=== PATIENT | female | born 1950 | race Hispanic/Latino ===

== ENCOUNTER 2016-09-17 14:58 | Emergency (ER) | payer OTHER, MEDICARE ==
[2016-09-17 14:58] VITALS: BMI 27.1
[2016-09-17 15:02] VITALS: BP 141/71; PULSE 95; RESP 20; TEMP 98; O2SAT 100
[2016-09-17] MEDS ORDERED: Sodium Chloride 0.9% 1,000 ML IV STA (15:31)
--- NOTE | 2016-09-17 15:34 | ED PDOC ---
HPI: Back Time Seen by Provider: 09/17/16 15:06 Chief Complaint (Nursing): Back Pain Chief Complaint (Provider): Back Pain History Per: Patient History/Exam Limitations: no limitations Onset/Duration Of Symptoms: Days (x2) Current Symptoms Are (Timing): Still Present Additional Complaint(s): Nguyen Blevins is a 66 year old female, with a past medical history of diabetes and kidney stones, who presents to the emergency department complaining of low back pain onset for 2 days associated with a burning sensation when urinating. She denies fever or chills and reports symptoms are similar to previous kidney stones where she required a lithotripsy at [facility]. She states to taking Pyridium to no relief. PMD: None provided Past Medical History Reviewed: Historical Data, Nursing Documentation, Vital Signs Vital Signs: Last Vital Signs Temp 98.0 F 09/17/16 15:00 Pulse 95 H 09/17/16 15:00 Resp 20 09/17/16 15:00 BP 141/71 09/17/16 15:00 Pulse Ox 100 09/17/16 15:00 - Medical History PMH: Arthritis, Diabetes (on Insulin, accucheck this morning 137), Gall Bladder Disease, HTN, Kidney Stones Denies: Asthma, Atrial Fibrillation, CHF, COPD, Hypercholesterolemia, Seizures - Surgical History Surgical History: Cholecystectomy, Coronary Stent Denies: CABG, Pacemaker Other surgeries: lithotripsy - Family History Family History: States: CAD - Home Medications Home Medications: Ambulatory Orders Medication Instructions Recorded Aspirin [Aspirin Chewable] 1 tab PO DAILY 05/04/15 Clopidogrel Bisulfate [Plavix] 1 tab PO DAILY 05/04/15 Digoxin [Lanoxin] 1 tab PO DAILY 05/04/15 Insulin Detemir [Levemir] 18 mg SUBCUT DAILY 05/04/15 Liraglutide [Victoza 2-Sai] 18 mg SUBCUT DAILY 05/04/15 Metoprolol Succinate [Toprol XL] 1 tab PO DAILY 05/04/15 metFORMIN [glucOPHAGE] 2 tab PO BID 05/04/15 Irbesartan [Avapro] 150 mg PO DAILY 06/30/15 Nitrofurantoin Macrocrystals 100 mg PO BID #10 cap 09/17/16 [Macrobid] Phenazopyridine HCl [Pyridium] 100 mg PO BID PRN 5 Days 09/17/16 - Allergies Allergies/Adverse Reactions: Allergies Allergy/AdvReac Type Severity Reaction Status Date / Time ciprofloxacin [From Cipro] Allergy ITCHING Verified 05/03/15 07:52 Review of Systems ROS Statement: Except As Marked, All Systems Reviewed And Found Negative Genitourinary Female: Positive for: Dysuria, Other (Creek coloration in urine) Musculoskeletal: Positive for: Back Pain Physical Exam - Reviewed Nursing Documentation Reviewed: Yes Vital Signs Reviewed: Yes - Physical Exam Appears: Positive for: Well, Non-toxic, In Acute Distress (Moderate Pain ) Head Exam: Positive for: ATRAUMATIC, NORMAL INSPECTION, NORMOCEPHALIC Skin: Positive for: Normal Color, Warm, Dry Eye Exam: Positive for: EOMI, Normal appearance, PERRL ENT: Positive for: Normal ENT Inspection Cardiovascular/Chest: Positive for: Regular Rate, Rhythm Respiratory: Positive for: CNT, Normal Breath Sounds Gastrointestinal/Abdominal: Positive for: Normal Exam, Bowel Sounds, Soft Back: Positive for: R CVA Tenderness. Negative for: Normal Inspection Neurologic/Psych: Positive for: Alert, Oriented - Laboratory Results Result Diagrams: 09/17/16 15:45 09/17/16 15:45 - ECG O2 Sat by Pulse Oximetry: 100 (RA) Pulse Ox Interpretation: Normal Medical Decision Making Medical Decision Making: Initial Impression: Pylonephritis Initial Plan: --Abd and Pelvis w/o PO or IV [CT] --Comp Metabolic Panel --Urine Dipstick --CBC w/ diff --PTT --Patient --Toradol 15 mg IV --NS IV 1000 ml at 1000 mls/hr --Urine Culture --Glucose, Blood, POC --Urinalysis --reevaluation Scribe Attestation: Documented by Mayito Melo, acting as a scribe for Abi Boland MD. Provider Scribe Attestation: All medical record entries made by the Scribe were at my direction and personally dictated by me. I have reviewed the chart and agree that the record accurately reflects my personal performance of the history, physical exam, medical decision making, and the department course for this patient. I have also personally directed, reviewed, and agree with the discharge instructions and disposition. Disposition - Clinical Impression Clinical Impression: UTI (urinary tract infection), Kidney stone - Disposition Referrals: [facility] [Outside] - 09/18/16 Yusra Adhikari MD [Medical Doctor] - 09/18/16 Disposition: Transfer of Care Disposition Time: 17:00 Condition: STABLE Additional Instructions: Return if not better in 3 days. Prescriptions: Nitrofurantoin Macrocrystals [Macrobid] 100 mg PO BID #10 cap Phenazopyridine HCl [Pyridium] 100 mg PO BID PRN 5 Days PRN Reason: Bladder Spasm Instructions: Kidney Stones (ED), Urinary Tract Infection in Women (ED) Forms: [employer] (Ukrainian) Patient Signed Over To: Vincent Sin
[2016-09-17 15:58] LABS: BASO % 0.4 % (0.0-2.0); EOS # 0.1 K/uL (0.0-0.7); EOS % 1.8 % (0.0-4.0); HEMOGLOBIN 11.8 g/dL (12.0-16.0); LYMPH # 1.6 K/uL (1.0-4.3); LYMPH % 21.9 % (20.0-40.0); MEAN CELL VOLUME 83.2 fl (81.0-99.0); MEAN CORPUSCULAR HEMOGLOBIN 27.1 pg (27.0-31.0); MEAN CORPUSCULAR HGB CONC 32.6 g/dL (33.0-37.0); MEAN PLATELET VOLUME 7.4 fl (7.2-11.7); MONO # 0.3 K/uL (0.0-0.8); MONO % 4.8 % (0.0-10.0); NEUT # 5.1 K/uL (1.8-7.0); NEUT % 71.1 % (50.0-75.0); NRBC % 0.1 % (0.0-0.0); RBC 4.34 Mil/uL (3.80-5.20); RED CELL DISTRIBUTION WIDTH 14.1 % (11.5-14.5); WHITE BLOOD COUNT 7.2 K/uL (4.8-10.8)
[2016-09-17 16:05] LABS: SQUAMOUS EPITHIAL 1 /hpf (0-5); URINE BILIRUBIN NEGATIVE (NEGATIVE); URINE BLOOD SMALL (NEGATIVE); URINE CLARITY CLOUDY (Clear); URINE COLOR RED (YELLOW); URINE GLUCOSE (UA) 150 mg/dL (Normal); URINE LEUKOCYTE ESTERASE NEG Leu/uL (Negative); URINE NITRATE POSITIVE (NEGATIVE); URINE PROTEIN 100 mg/dL (NEGATIVE)
[2016-09-17 16:10] LABS: ALB/GLOB RATIO 1.7 (1.0-2.1); ALBUMIN 4.6 g/dL (3.5-5.0); ALT/SGPT 69 U/L (9-52); AST/SGOT 39 U/L (14-36); BLOOD UREA NITROGEN 17 mg/dl (7-17); CALCIUM 9.7 mg/dL (8.4-10.2); GFR AFRICAN-AMERICAN > 60; GFR NON-AFRICAN AMERICAN > 60
[2016-09-17] MEDS ORDERED: cefTRIAXone (Rocephin) 1 gm Inj ONE (16:14)
--- NOTE | 2016-09-17 17:31 | CT ---
PROCEDURE: CT Abdomen and Pelvis without Oral or IV contrast. HISTORY: R flank pain COMPARISON: Limited abdominal ultrasound performed 04/05/16 TECHNIQUE: Contiguous axial images of the abdomen and pelvis. No oral or IV contrast administered. Coronal and Sagittal reformats generated and reviewed. Radiation dose: Total exam DLP = 898.86 mGy-cm. This CT exam was performed using one or more of the following dose reduction techniques: Automated exposure control, adjustment of the mA and/or kV according to patient size, and/or use of iterative reconstruction technique. FINDINGS: There is limited evaluation of the solid organs without the administration of IV contrast. LOWER THORAX: No visible consolidation, pleural effusion, or pneumothorax. Punctate calcified granuloma, right middle lobe. Sub cm cardiophrenic lymph nodes, nonspecific. Small hiatal hernia/distal esophageal wall thickening. LIVER: Unremarkable unenhanced appearance. GALLBLADDER AND BILE DUCTS: Cholecystectomy. PANCREAS: Atrophy. SPLEEN: 9 mm probable splenule. Splenomegaly. ADRENALS: 9 mm left adrenal gland nodule measures approximately 16 HU, indeterminate. The right adrenal gland appears unremarkable. KIDNEYS AND URETERS: No hydronephrosis or obstructing renal calculus. 3 mm nonobstructing right renal calculus. BLADDER: 3 mm calcification dependent within the urinary bladder, presumably due to recently passed stone. Correlate clinically. REPRODUCTIVE: Uterus is present. APPENDIX: The appendix appears within normal limits of caliber. No secondary signs of acute appendicitis. BOWEL: The stomach is nondistended. Lack of oral contrast limits evaluation for bowel pathology. The bowel loops appear within normal limits of caliber without evidence of intestinal obstruction. Moderate constipation. PERITONEUM: No significant free fluid. No definite free air. LYMPH NODES: No bulky lymphadenopathy identified. VASCULATURE: No aortic aneurysm. BONES: Osseous demineralization. Extensive multilevel degenerative changes of the spine including intervertebral disc space narrowing and vacuum disc phenomenon. Degenerative changes of the spine. OTHER FINDINGS: None. IMPRESSION: 3 mm calcification dependent within the urinary bladder, presumably due to recently passed stone. Correlate clinically. 3 mm nonobstructing right renal calculus. 9 mm left adrenal gland nodule measures approximately 16 HU, indeterminate. Splenomegaly. Cholecystectomy. Small hiatal hernia/distal esophageal wall thickening. Additional findings as above.
--- NOTE | 2016-09-17 17:36 | ED PDOC ---
- Laboratory Results Result Diagrams: 09/17/16 15:45 09/17/16 15:45 Interpretation Of Abn Labs: urine wbc - ECG O2 Sat by Pulse Oximetry: 100 (RA) - CT Scan/US ct Other Rad Studies (CT/US): Read By Radiologist Other Rad Interpretation: 3mm stone in bladder - Progress ED Course And Treament: 1757: Stable. AAOx3. Pain free. Tolerated PO. Fu with your urologist Dr. Cleary and pcp. Disposition - Clinical Impression Clinical Impression: UTI (urinary tract infection), Kidney stone - POA Present On Arrival: None - Disposition Referrals: Yusra Adhikari MD [Medical Doctor] - 09/18/16 [facility] [Outside] - 09/18/16 Disposition: Routine/Home Disposition Time: 17:59 Condition: STABLE Additional Instructions: Return if not better in 3 days. Prescriptions: Nitrofurantoin Macrocrystals [Macrobid] 100 mg PO BID #10 cap Phenazopyridine HCl [Pyridium] 100 mg PO BID PRN 5 Days PRN Reason: Bladder Spasm Instructions: Urinary Tract Infection in Women (ED), Kidney Stones (ED) Forms: [employer] (Bengali)
[2016-09-17 18:04] LABS: INR 1.1 (0.9-1.2); PARTIAL THROMBOPLASTIN TIME 30.2 Seconds (25.6-37.1); PROTHROMBIN TIME 11.5 Seconds (9.8-13.1)
== END 2016-09-17 19:19 | disposition home or self-care (01) ==
LOC: H.ER 14:58
DX: N39.0 Urinary tract infection, site not specified (principal); N20.0 Calculus of kidney; E11.9 Type 2 diabetes mellitus without complications; I10 Essential (primary) hypertension; Z79.4 Long term (current) use of insulin; Z79.82 Long term (current) use of aspirin; Z95.5 Presence of coronary angioplasty implant and graft

== ENCOUNTER 2017-09-09 07:04 | Day surgery (SDC) | payer OTHER, MEDICARE ==
[2017-09-09] MEDS ORDERED: Lactated Ringer's 500 ML IV ONE (07:29)
[2017-09-09] MEDS ORDERED: Propofol 10 mg/ml Inj (20 ML) ONE (08:10)
[2017-09-09] MEDS ORDERED: ePHEDrine 50 mg/ml Inj ONE (08:29)
[2017-09-09 09:34] VITALS: BP 133/63; PULSE 91; RESP 22; TEMP 98; O2SAT 100
== END 2017-09-09 09:35 | disposition home or self-care (01) ==
LOC: H.ENDO 07:04
PROVIDERS: ATTEND Internal Medicine Gastroenterology
DX: K52.9 Noninfective gastroenteritis and colitis, unspecified (principal); E11.9 Type 2 diabetes mellitus without complications; I10 Essential (primary) hypertension; I25.10 Atherosclerotic heart disease of native coronary artery without angina pectoris; K63.89 Other specified diseases of intestine; K29.70 Gastritis, unspecified, without bleeding
CPT/HCPCS: 43239; 45380; 82948; 88305; J2001; J2704; J7120

== ENCOUNTER 2017-11-29 12:42 | Emergency (ER) | payer OTHER, MEDICARE ==
[2017-11-29 12:42] VITALS: BMI 27.1
[2017-11-29] MEDS ORDERED: Sodium Chloride 0.9% 1,000 ML IV STA (13:18)
--- NOTE | 2017-11-29 13:29 | ED PDOC ---
HPI: Abdomen Time Seen by Provider: 11/29/17 13:09 Chief Complaint (Nursing): Abdominal Pain Chief Complaint (Provider): Abdominal Pain History Per: Patient History/Exam Limitations: no limitations Onset/Duration Of Symptoms: Days (x2) Current Symptoms Are (Timing): Still Present Additional Complaint(s): 67 y/o female with a PMHx of Arthritis, Diabetes, Gall Bladder Disease, HTN and Kidney Stones presents to the ED for worsening left sided abdominal and back pain, onset two days ago. Patient states pain is associated with three episodes of dysuria yesterday. Patient reports dysuria resolved with pyridium that she used leftover from a previous UTI. Patient additionally reports of diarrhea for the past six months. Patient has had workup done for diarrhea but have all resulted negative. Patient additionally states symptoms does not feel as sharp or crampy as those associated with previous renal stones. Patient reports of nausea for the past two days as well as tolerating small amounts of food and water. Patient states other conditions are otherwise well controlled. Denies fever and recent illnesses. PMD: [facility] Past Medical History Reviewed: Historical Data, Nursing Documentation, Vital Signs Vital Signs: Last Vital Signs Temp 97.9 F 11/29/17 12:46 Pulse 82 11/29/17 12:46 Resp 18 11/29/17 12:46 BP 175/85 H 11/29/17 12:46 Pulse Ox 98 11/29/17 12:46 - Medical History PMH: Arthritis, Diabetes (on Insulin, accucheck this morning 137), Gall Bladder Disease, HTN, Kidney Stones Denies: Asthma, Atrial Fibrillation, CHF, COPD, Hypercholesterolemia, Chronic Kidney Disease, Seizures - Surgical History Surgical History: Cholecystectomy, Coronary Stent (x10 years ago), Endoscopy Denies: CABG, Pacemaker - Family History Family History: States: CAD - Home Medications Home Medications: Ambulatory Orders Medication Instructions Recorded RX: Aspirin [Aspirin Chewable] 1 tab PO DAILY 05/04/15 RX: Clopidogrel Bisulfate [Plavix] 1 tab PO DAILY 05/04/15 RX: Digoxin 1 tab PO DAILY 05/04/15 RX: Metoprolol Succinate XL 1 tab PO DAILY 05/04/15 [Toprol XL] RX: metFORMIN [glucOPHAGE] 2 tab PO BID 05/04/15 Irbesartan [Avapro] 150 mg PO DAILY 06/30/15 RX: Naproxen 500 mg PO BID #28 ect 11/29/17 Sulfamethoxazole/Trimethoprim 1 tab PO BID #28 tab 11/29/17 [Bactrim DS 800 mg-160 mg] Tamsulosin [Flomax] 0.4 mg PO DAILY #30 cap 11/29/17 - Allergies Allergies/Adverse Reactions: Allergies Allergy/AdvReac Type Severity Reaction Status Date / Time ciprofloxacin [From Cipro] Allergy ITCHING Verified 05/03/15 07:52 Review of Systems ROS Statement: Except As Marked, All Systems Reviewed And Found Negative Gastrointestinal: Positive for: Nausea, Abdominal Pain, Diarrhea Genitourinary Female: Positive for: Dysuria Musculoskeletal: Positive for: Back Pain Physical Exam - Reviewed Nursing Documentation Reviewed: Yes Vital Signs Reviewed: Yes - Physical Exam Appears: Positive for: Well, No Acute Distress Head Exam: Positive for: ATRAUMATIC, NORMOCEPHALIC Skin: Positive for: Normal Color, Warm, Dry Eye Exam: Positive for: Normal appearance, EOMI, PERRL Neck: Positive for: Normal, Painless ROM Cardiovascular/Chest: Positive for: Regular Rate, Rhythm. Negative for: Murmur Respiratory: Positive for: Normal Breath Sounds. Negative for: Respiratory Distress Gastrointestinal/Abdominal: Positive for: Normal Exam, Soft, Tenderness (LLQ) Back: Positive for: L CVA Tenderness, R CVA Tenderness - Laboratory Results Result Diagrams: 11/29/17 13:40 11/29/17 13:40 - ECG O2 Sat by Pulse Oximetry: 98 (RA) Pulse Ox Interpretation: Normal Medical Decision Making Medical Decision Making: Time: 1320 A/P: Workup for stones vs other abdominal pathology or UTI -- Will send labs, urine, CT Abd/Pelvis -- Will reassess patient -- VBG -- EKG -- CMP -- Lipase -- Magnesium -- Phosphorus -- CBC with differentials -- Morphine 2 mg IVP -- Sodium Chloride IV 1000 mls/hr -- Accucheck -- Urinalysis Scribe Attestation: Documented by Rony Echols, acting as a scribe Magy Strickland MD. Provider Scribe Attestation: All medical record entries made by the Scribe were at my direction and personal ly dictated by me. I have reviewed the chart and agree that the record accurately reflects my personal performance of the history, physical exam, medical decision making, and the department course for this patient. I have also personally directed, reviewed, and agree with the discharge instructions and disposition. CT shows stones in bladder and right kidney. No obstruction or hydroureter. UA shows UTI. RX for pain control, Flomax, and Abx. Pt to follow up with urologist and PMD. Return parameters discussed. Disposition - Clinical Impression Clinical Impression: Renal stones, UTI (urinary tract infection) - Disposition Referrals: Yusra Adhikari MD [Medical Doctor] - Disposition Time: 16:10 Condition: IMPROVED Additional Instructions: Follow up with the urologist and your primary doctor for follow up with urinary tract infection and renal stones. Return to the emergency department if symptoms worsen or if you develop new symptoms. Prescriptions: RX: Naproxen 500 mg PO BID #28 ect Sulfamethoxazole/Trimethoprim [Bactrim DS 800 mg-160 mg] 1 tab PO BID #28 tab Tamsulosin [Flomax] 0.4 mg PO DAILY #30 cap Instructions: Kidney Stones (DC), Urinary Tract Infection, Adult (DC) Forms: [employer] (Lao) Print Language: IRISH
[2017-11-29 13:45] LABS: VENOUS BLOOD GAS BASE EXCESS 5.3 mmol/L (0.0-2.0); VENOUS BLOOD GAS PCO2 54 mmHg (40-60); VENOUS BLOOD GAS PO2 24 mm/Hg (30-55); VENOUS BLOOD PH 7.38 (7.32-7.43)
[2017-11-29 13:52] LABS: BASO % 0.5 % (0.0-2.0); EOS # 0.1 K/uL (0.0-0.7); EOS % 1.3 % (0.0-4.0); HEMOGLOBIN 12.8 g/dL (12.0-16.0); LYMPH # 1.2 K/uL (1.0-4.3); LYMPH % 18.4 % (20.0-40.0); MEAN CELL VOLUME 84.3 fl (81.0-99.0); MEAN CORPUSCULAR HEMOGLOBIN 28.3 pg (27.0-31.0); MEAN CORPUSCULAR HGB CONC 33.6 g/dL (33.0-37.0); MEAN PLATELET VOLUME 6.9 fl (7.2-11.7); MONO # 0.3 K/uL (0.0-0.8); MONO % 4.6 % (0.0-10.0); NEUT % 75.2 % (50.0-75.0); NRBC % 0.1 % (0.0-0.0); RBC 4.52 Mil/uL (3.80-5.20); RED CELL DISTRIBUTION WIDTH 13.5 % (11.5-14.5); WHITE BLOOD COUNT 6.6 K/uL (4.8-10.8)
[2017-11-29 14:05] LABS: ALB/GLOB RATIO 1.3 (1.0-2.1); ALBUMIN 4.5 g/dL (3.5-5.0); ALT/SGPT 46 U/L (9-52); AST/SGOT 28 U/L (14-36); BLOOD UREA NITROGEN 11 mg/dl (7-17); CALCIUM 10.4 mg/dL (8.4-10.2); GFR NON-AFRICAN AMERICAN > 60; LIPASE 34 U/L (23-300)
--- NOTE | 2017-11-29 16:33 | CT ---
Date of service: 11/29/2017 PROCEDURE: CT Abdomen and Pelvis without intravenous contrast HISTORY: left abd pain COMPARISON: Comparison is made with the previous study dated 09/17/2016 TECHNIQUE: Axial and reformatted coronal and sagittal CT images of the abdomen and pelvis were obtained without IV or oral contrast administration. Contrast dose: 0 Radiation dose: Total exam DLP = 596.7 mGy-cm. This CT exam was performed using one or more of the following dose reduction techniques: Automated exposure control, adjustment of the mA and/or kV according to patient size, and/or use of iterative reconstruction technique. FINDINGS: LOWER THORAX: Unremarkable. LIVER: Hepatomegaly is again noted. GALLBLADDER AND BILE DUCTS: Status post cholecystectomy. PANCREAS: Unremarkable. No gross lesion or ductal dilatation. SPLEEN: Splenomegaly is again noted. ADRENALS: Again noted is left adrenal nodule measures 1.2 centimeter. KIDNEYS AND URETERS: Again noted is 3 millimeter calcification at the midpole of the right kidney may represent nonobstructing calcaneus. No evidence of hydronephrosis. VASCULATURE: Unremarkable. No aortic aneurysm. BOWEL: Unremarkable. No obstruction. No gross mural thickening. APPENDIX: Unremarkable. Normal appendix. PERITONEUM: Unremarkable. No free fluid. No free air. LYMPH NODES: Unremarkable. No enlarged lymph nodes. BLADDER: Small droplet of air in the bladder noted. REPRODUCTIVE: Unremarkable. BONES: No acute fracture. OTHER FINDINGS: None. IMPRESSION: 3 millimeter calcification at the midpole of the left kidney again noted. No evidence of hydronephrosis or obstructing calculus. Hepato splenomegaly. Stable 1.2 centimeter nodule at the left adrenal gland.
[2017-11-29 16:36] LABS: URINE BACTERIA MANY (<OCC); URINE BILIRUBIN NEGATIVE (NEGATIVE); URINE BLOOD NEGATIVE (NEGATIVE); URINE CLARITY SLIGHTY-CLOUDY (Clear); URINE COLOR AMBER (YELLOW); URINE GLUCOSE (UA) NEG (Normal); URINE LEUKOCYTE ESTERASE SMALL Leu/uL (Negative); URINE PROTEIN NEGATIVE (NEGATIVE); URINE UROBILINOGEN 0.2-1.0 mg/dL (0.2-1.0)
[2017-11-29 17:12] VITALS: BP 168/91; PULSE 92; RESP 16; TEMP 97.6
--- NOTE | 2017-11-30 07:14 | CARD ---
APPROVED REPORT Date of service: 11/29/2017 EKG Measurement Heart [id number] <Conclusion> Normal sinus rhythm Left axis deviation Abnormal ECG
[2017-11-30 14:59] VITALS: O2SAT 98
== END 2017-11-29 17:20 | disposition home or self-care (01) ==
LOC: H.ER 12:42
DX: R19.7 Diarrhea, unspecified (principal); N20.0 Calculus of kidney; N39.0 Urinary tract infection, site not specified; E11.9 Type 2 diabetes mellitus without complications; I10 Essential (primary) hypertension; Z82.49 Family history of ischemic heart disease and other diseases of the circulatory system; Z87.442 Personal history of urinary calculi; Z95.5 Presence of coronary angioplasty implant and graft; Z79.82 Long term (current) use of aspirin; Z79.4 Long term (current) use of insulin
CPT/HCPCS: 74176; 80053; 81003; 82803; 82948; 83690; 83735; 84100; 85025; 93005; 96374; 96375; 99284; J1885; J2270; J2405; J2765; J7030

== ENCOUNTER 2017-12-01 06:59 | Observation (INO) | payer OTHER, MEDICARE ==
[2017-12-01 07:00] VITALS: BMI 27.1
[2017-12-01] MEDS ORDERED: Sodium Chloride 0.9% 1,000 ML IV STA (07:34)
[2017-12-01 08:29] LABS: BASO % 0.3 % (0.0-2.0); EOS # 0.1 K/uL (0.0-0.7); EOS % 0.7 % (0.0-4.0); LYMPH % 15.3 % (20.0-40.0); MEAN CORPUSCULAR HEMOGLOBIN 28.3 pg (27.0-31.0); MEAN CORPUSCULAR HGB CONC 33.8 g/dL (33.0-37.0); MEAN PLATELET VOLUME 6.9 fl (7.2-11.7); MONO # 0.2 K/uL (0.0-0.8); MONO % 3.4 % (0.0-10.0); NEUT # 5.4 K/uL (1.8-7.0); NEUT % 80.3 % (50.0-75.0); RBC 4.23 Mil/uL (3.80-5.20); RED CELL DISTRIBUTION WIDTH 13.5 % (11.5-14.5); WHITE BLOOD COUNT 6.8 K/uL (4.8-10.8)
--- NOTE | 2017-12-01 08:30 | ED PDOC ---
HPI: Back Time Seen by Provider: 12/01/17 07:20 Chief Complaint (Nursing): Back Pain Chief Complaint (Provider): Back Pain History Per: Patient History/Exam Limitations: no limitations Onset/Duration Of Symptoms: Days (x 4 days ago ), Persistent, Worse Since (03:00 today) Current Symptoms Are (Timing): Still Present Additional Complaint(s): Nguyen Blevins is 67 year old female with a past medical history of HTN, kidney stones and type 2 diabetes, who presents to the emergency department complaining of persistent and recurrent left sided flank pain, associated with nausea, onset x4 days ago. Patient states she was seen in the ED x3 days ago and was diagnosed with kidney stones. She reports that her pain had gotten worse as of 03:00 today, prompting her to come to the ED accompanied by her . Patient denies being able to take her medication because of her nausea. PMD: not at [facility] uro: [facility]: [facility] Past Medical History Reviewed: Historical Data, Nursing Documentation, Vital Signs Vital Signs: Last Vital Signs Temp 98.1 F 12/01/17 07:23 Pulse 81 12/01/17 07:23 Resp 18 12/01/17 07:23 BP 181/73 H 12/01/17 07:23 Pulse Ox 96 12/01/17 07:23 - Medical History PMH: Arthritis, Diabetes (on Insulin, accucheck this morning 137), Gall Bladder Disease, HTN, Kidney Stones Denies: Asthma, Atrial Fibrillation, CHF, COPD, Hypercholesterolemia, Chronic Kidney Disease, Seizures - Surgical History Surgical History: Cholecystectomy, Coronary Stent (x10 years ago), Endoscopy Denies: CABG, Pacemaker - Family History Family History: States: CAD - Home Medications Home Medications: Ambulatory Orders Medication Instructions Recorded Aspirin [Aspirin Chewable] 1 tab PO DAILY 05/04/15 Clopidogrel Bisulfate [Plavix] 1 tab PO DAILY 05/04/15 Digoxin 1 tab PO DAILY 05/04/15 Metoprolol Succinate XL [Toprol XL] 1 tab PO DAILY 05/04/15 metFORMIN [glucOPHAGE] 2 tab PO BID 05/04/15 Irbesartan [Avapro] 150 mg PO DAILY 06/30/15 Naproxen 500 mg PO BID #28 ect 11/29/17 Sulfamethoxazole/Trimethoprim 1 tab PO BID #28 tab 11/29/17 [Bactrim DS 800 mg-160 mg] Tamsulosin [Flomax] 0.4 mg PO DAILY #30 cap 11/29/17 - Allergies Allergies/Adverse Reactions: Allergies Allergy/AdvReac Type Severity Reaction Status Date / Time ciprofloxacin [From Cipro] Allergy ITCHING Verified 12/01/17 07:23 Review of Systems ROS Statement: Except As Marked, All Systems Reviewed And Found Negative Cardiovascular: Positive for: Chest Pain Gastrointestinal: Positive for: Nausea, Abdominal Pain (left sided flank pain) Physical Exam - Reviewed Nursing Documentation Reviewed: Yes Vital Signs Reviewed: Yes - Physical Exam Appears: Positive for: In Acute Distress Head Exam: Positive for: ATRAUMATIC, NORMOCEPHALIC Skin: Positive for: Normal Color, Warm, Dry Eye Exam: Positive for: Normal appearance, EOMI, PERRL ENT: Positive for: Normal ENT Inspection Neck: Positive for: Normal, Painless ROM, Supple Cardiovascular/Chest: Positive for: Regular Rate, Rhythm. Negative for: Murmur Respiratory: Positive for: Normal Breath Sounds. Negative for: Respiratory Distress Gastrointestinal/Abdominal: Positive for: Tenderness (left flank side) Back: Positive for: Normal Inspection. Negative for: L CVA Tenderness, R CVA Tenderness, Vertebral Tenderness Extremity: Positive for: Normal ROM. Negative for: Pedal Edema, Deformity Neurologic/Psych: Positive for: Alert, Oriented (x3) - Laboratory Results Result Diagrams: 12/01/17 08:10 12/01/17 08:10 - ECG O2 Sat by Pulse Oximetry: 96 (RA) Pulse Ox Interpretation: Normal Medical Decision Making Medical Decision Making: Time: 08:10 Initial Impression: Renal calculus Initial Plan: --CMP --Lipase --CBC with differential --Urine Culture --Urinalysis --Renal [US] Medications: --Toradol 15 mg IVP --Sodium Chloride 1,000 ml --Zofran 4 mg IV --------- US and CT report reviewed, no obstructing stone UA today neg nitrate neg WBC Patient in ED 9+ hrs, remains nausea and failed PO challenge x2, dizzy/presyncopal on standing EKG NSR 78 w nonspecific changes PMD in [facility], has seen dr Foley and dr Adhikari in past, had lower and upper endoscopies within last [address] Foley, Dr Adhikari sees for UTIs d/w Dr Moody for Obs med surg given inability to tolerate PO, persistent pain and recurrent ED visits for same with failure outpatient therapy Scribe Attestation: Documented by Frantz Avalos, acting as a scribe for Robert Shukla III, DO. Provider Scribe Attestation: All medical record entries made by the Scribe were at my direction and personally dictated by me. I have reviewed the chart and agree that the record accurately reflects my personal performance of the history, physical exam, medical decision making, and the department course for this patient. I have also personally directed, reviewed, and agree with the discharge instructions and disposition. Disposition - Clinical Impression Clinical Impression: Flank pain, Intractable vomiting, Kidney stone - Patient ED Disposition Is Patient to be Admitted: Yes Counseled Patient/Family Regarding: Studies Performed, Diagnosis, Need For Followup - Disposition Disposition Time: 16:01 Condition: STABLE Forms: [employer] (Divehi) - Pt Status Changed To: Hospital Disposition Of: Observation - POA Present On Arrival: None
[2017-12-01 08:38] LABS: ALB/GLOB RATIO 1.3 (1.0-2.1); ALBUMIN 4.1 g/dL (3.5-5.0); ALT/SGPT 32 U/L (9-52); AST/SGOT 32 U/L (14-36); BLOOD UREA NITROGEN 16 mg/dl (7-17); CALCIUM 9.4 mg/dL (8.4-10.2); GFR NON-AFRICAN AMERICAN > 60; LIPASE 59 U/L (23-300)
[2017-12-01 11:10] LABS: URINE BACTERIA RARE (<OCC); URINE BILIRUBIN NEGATIVE (NEGATIVE); URINE BLOOD NEGATIVE (NEGATIVE); URINE CLARITY CLEAR (Clear); URINE COLOR YELLOW (YELLOW); URINE GLUCOSE (UA) >=500 mg/dL (Normal); URINE LEUKOCYTE ESTERASE NEG Leu/uL (Negative); URINE PROTEIN NEGATIVE (NEGATIVE); URINE UROBILINOGEN 0.2-1.0 mg/dL (0.2-1.0)
--- NOTE | 2017-12-01 12:10 | CT ---
Date of service: 12/01/2017 PROCEDURE: CT Abdomen and Pelvis without intravenous contrast HISTORY: persistent L flank pain COMPARISON: Abdomen and pelvis CT without contrast 11/29/2017. TECHNIQUE: Helical CT of the abdomen and pelvis was performed without oral or intravenous contrast as per referring physician request. Coronal and sagittal reformats were generated Contrast dose: None Radiation dose: Total exam DLP = 556.87 mGy-cm. This CT exam was performed using one or more of the following dose reduction techniques: Automated exposure control, adjustment of the mA and/or kV according to patient size, and/or use of iterative reconstruction technique. FINDINGS: LOWER THORAX: Small granuloma right middle lobe base reiterated. LIVER: Borderline hepatomegaly. No gross lesion or ductal dilatation. GALLBLADDER AND BILE DUCTS: Prior cholecystectomy reiterated. PANCREAS: Unremarkable. No gross lesion or ductal dilatation. SPLEEN: Splenomegaly reiterated. ADRENALS: Stable left adrenal adenoma 1.2 cm reiterated. Right adrenal gland remains normal appearing. KIDNEYS AND URETERS: Punctate nonobstructing intrarenal calculus is again seen the midpole right kidney no additional radiodense urolithiasis bilaterally. VASCULATURE: Trace calcified atherosclerotic plaque in the abdominal aorta. No aortic aneurysm. BOWEL: No bowel obstruction. Prominent right fecal loading now identified with [id number] fecal loading throughout the remainder of the colon. Pericolic or perienteric reactive changes appreciated once again. APPENDIX: Unremarkable. Normal appendix. PERITONEUM: Unremarkable. No free fluid. No free air. LYMPH NODES: Unremarkable. No enlarged lymph nodes. BLADDER: Unremarkable. REPRODUCTIVE: Unremarkable. BONES: Stable grade 1 spondylolisthesis L2-3 with L2 anterior L3 once again. Advanced degenerative disease seen L3-4, L4-5 and L5-S1 where there are vacuum disc changes combined with gross disc height loss and endplate arthrosis. OTHER FINDINGS: Reactive changes at the anterior abdominal wall identified bilaterally potentially status post multiple injections but ultimately of uncertain origin. IMPRESSION: 1. Stable borderline hepatomegaly. Stable splenomegaly. 2. 3 mm calculus stable at the midpole right kidney. No obstructive uropathy bilaterally once again. 3. Stable 1.2 cm left adrenal nodule.
--- NOTE | 2017-12-01 12:17 | US ---
Date of service: 12/01/2017 PROCEDURE: Ultrasound of the Kidneys HISTORY: L flank pain COMPARISON: None available. TECHNIQUE: Sonogram of the kidneys. FINDINGS: RIGHT KIDNEY: Measures: 5.7 x 10.6 cm. Normal in size, contour and echogenicity. Solitary echogenic focus mid pole region 3 x 4 mm consistent with nonobstructing calculus. LEFT KIDNEY: Measures: 5.5 x 12.2 cm. Normal in size, contour and echogenicity. No stone, solid mass lesion or hydronephrosis visualized. OTHER FINDINGS: None. IMPRESSION: Nonobstructing right renal calculus. Otherwise unremarkable study
[2017-12-01] MEDS ORDERED: Dextrose 5%/0.9% NS 1,000 ML IV SCH (18:45)
[2017-12-01] MEDS ORDERED: Insulin Detemir 100 Units/ml Inj SC SCH (22:00)
[2017-12-01] MEDS: Insulin Regular 100 units/ml SC SCH (22:11)
[2017-12-02] MEDS: Omega-3-Acid Ethyl Esters 1 GM Cap PO SCH ×2 (00:13→09:33)
[2017-12-02 00:20] VITALS: RESP 20
[2017-12-02 06:04] LABS: HEMOGLOBIN 11.5 g/dL (12.0-16.0); MEAN CELL VOLUME 83.2 fl (81.0-99.0); MEAN CORPUSCULAR HEMOGLOBIN 28.6 pg (27.0-31.0); MEAN CORPUSCULAR HGB CONC 34.3 g/dL (33.0-37.0); RBC 4.03 Mil/uL (3.80-5.20); RED CELL DISTRIBUTION WIDTH 13.4 % (11.5-14.5); WHITE BLOOD COUNT 7.8 K/uL (4.8-10.8)
[2017-12-02 06:12] LABS: ALB/GLOB RATIO 1.2 (1.0-2.1); ALBUMIN 3.5 g/dL (3.5-5.0); ALT/SGPT 29 U/L (9-52); AST/SGOT 21 U/L (14-36); BLOOD UREA NITROGEN 12 mg/dl (7-17); CALCIUM 8.8 mg/dL (8.4-10.2); GFR NON-AFRICAN AMERICAN > 60; HDL CHOLESTEROL 27 MG/DL (30-70)
[2017-12-02 06:20] LABS: LDL CHOLESTEROL 71 mg/dL (0-129)
[2017-12-02 06:24] LABS: T4 6.88 ug/dl (5.5-11.0)
[2017-12-02 06:38] LABS: T3 0.644 nmol/L (1.49-2.60)
[2017-12-02] MEDS ORDERED: Naproxen 500 MG TAB PO SCH (08:00)
[2017-12-02] MEDS: Insulin Regular 100 units/ml SC SCH (08:00)
--- NOTE | 2017-12-02 08:23 | CP.PCM.HP ---
Addendum entered and electronically signed by Judy Valles MD 12/02/17 14:25: Pt stable, tolerating diet and ambulating without distress. No left flank pain noted today. Abd CT the stone on R kidney is non obstructing, very small and will most likely pass, there is no intervention at this time. Patient not having any pain on R flank. Patient seen and cleared for d/c by GI, Dr. Ybarra with outpatient f/u. patient cleared for d/c by Dr elizabeth and f/u as Outpt. Patient seen and cleared for d/c by Dr. Moody. family at bed bedside aware and agree with plan. Original Note: <Judy Valles - Last Filed: 12/02/17 14:19> History of Present Illness - History of Present Illness History of Present Illness: This is a 67 y/o female with a PMHx of Arthritis, Diabetes, Cholelithiasis, HTN and Kidney Stones presents to the ED for worsening left sided abdominal and back pain, onset two days ago. Patient states pain is associated with nausea and vomiting. Patient additionally reports constipation for two days when her normal is diarrhea. Patient states symptoms does not feel as sharp or crampy as those associated with previous renal stones. She had some dysuria that resolved with pyridium. She was able to eat breakfast this morning with no N/V. Renal US and CT shows 3mm renal calculi on left side. ROS: A 12pt ROS was negative except as above Pmhx: Arthritis, Diabetes, Cholelithiasis, HTN and Kidney Stones Pshx: denies FHX: non contributory SHx: Denies etoh, drugs, tobacco Meds: see bellow NKDA Present on Admission - Present on Admission Any Indicators Present on Admission: No Past Patient History - Past Medical History & Family History Past Medical History?: Yes - Past Social History Smoking Status: Never Smoked - CARDIAC Hx Hypertension: Yes - PULMONARY Hx Respiratory Disorders: No - NEUROLOGICAL Hx Neurological Disorder: No - HEENT Hx HEENT Problems: No - RENAL Hx Kidney Stones: Yes - ENDOCRINE/METABOLIC Hx Endocrine Disorders: Yes Hx Diabetes Mellitus Type 2: Yes - HEMATOLOGICAL/ONCOLOGICAL Hx Blood Disorders: No - INTEGUMENTARY Hx Dermatological Problems: No - MUSCULOSKELETAL/RHEUMATOLOGICAL Hx Arthritis: Yes Hx Falls: No - GASTROINTESTINAL Hx Gall Bladder Disease: Yes - GENITOURINARY/GYNECOLOGICAL Hx Genitourinary Disorders: No - PSYCHIATRIC Hx Psychophysiologic Disorder: No Hx Substance Use: No - SURGICAL HISTORY Hx Cholecystectomy: Yes Hx Coronary Stent: Yes (x10 years ago) - ANESTHESIA Hx Anesthesia: Yes Hx Anesthesia Reactions: No Hx Malignant Hyperthermia: No Meds Allergies/Adverse Reactions: Allergies Allergy/AdvReac Type Severity Reaction Status Date / Time ciprofloxacin [From Cipro] Allergy ITCHING Verified 12/02/17 19:42 Physical Exam - Constitutional Appears: No Acute Distress - Head Exam Head Exam: NORMAL INSPECTION - Eye Exam Eye Exam: EOMI, PERRL - Respiratory Exam Respiratory Exam: Clear to Auscultation Bilateral. absent: Rhonchi, Wheezes - Cardiovascular Exam Cardiovascular Exam: REGULAR RHYTHM, +S1, +S2 - GI/Abdominal Exam GI & Abdominal Exam: Soft. absent: Distended, Tenderness - Back Exam Back exam: CVA tenderness (L) - Neurological Exam Neurological exam: Alert, CN II-XII Intact, Oriented x3 - Skin Skin Exam: Dry, Warm Results - Vital Signs Recent Vital Signs: Last Vital Signs Temp 98.2 F 12/02/17 00:20 Pulse 89 12/02/17 00:20 Resp 20 12/02/17 00:20 BP 138/72 12/02/17 00:20 Pulse Ox 96 12/02/17 00:20 - Labs Result Diagrams: 12/02/17 05:45 12/02/17 05:45 Labs: Laboratory Results - last 24 hr 12/01/17 12/01/17 12/01/17 08:10 08:10 10:00 WBC 6.8 RBC 4.23 Hgb 12.0 Hct 35.5 MCV 84.0 MCH 28.3 MCHC 33.8 RDW 13.5 Plt Count 158 MPV 6.9 L Neut % (Auto) 80.3 H Lymph % (Auto) 15.3 L Sharkey % (Auto) 3.4 Eos % (Auto) 0.7 Baso % (Auto) 0.3 Neut # (Auto) 5.4 Lymph # (Auto) 1.0 Sharkey # (Auto) 0.2 Eos # (Auto) 0.1 Baso # (Auto) 0.0 Sodium 140 Potassium 4.0 Chloride 102 Carbon Dioxide 27 Anion Gap 15 BUN 16 Creatinine 0.7 Est GFR ( Amer) > 60 Est GFR (Non-Af Amer) > 60 POC Glucose (mg/dL) Random Glucose 226 H Calcium 9.4 Total Bilirubin 0.5 AST 32 ALT 32 Alkaline Phosphatase 61 Troponin I Total Protein 7.3 Albumin 4.1 Globulin 3.2 Albumin/Globulin Ratio 1.3 Triglycerides Cholesterol LDL Cholesterol Direct HDL Cholesterol Lipase 59 Vitamin B12 Thyroxine (T4) Total T3 TSH 3rd Generation Urine Color Yellow Urine Clarity Clear Urine pH 6.0 Ur Specific [place] 1.014 Urine Protein Negative Urine Glucose (UA) >=500 Urine Ketones Negative Urine Blood Negative Urine Nitrate Negative Urine Bilirubin Negative Urine Urobilinogen 0.2-1.0 Ur Leukocyte Esterase Neg Urine RBC (Auto) 2 Urine Microscopic WBC 5 Urine Bacteria Rare 12/01/17 12/01/17 12/02/17 14:30 22:05 05:19 WBC RBC Hgb Hct MCV MCH MCHC RDW Plt Count MPV Neut % (Auto) Lymph % (Auto) Sharkey % (Auto) Eos % (Auto) Baso % (Auto) Neut # (Auto) Lymph # (Auto) Sharkey # (Auto) Eos # (Auto) Baso # (Auto) Sodium Potassium Chloride Carbon Dioxide Anion Gap BUN Creatinine Est GFR ( Amer) Est GFR (Non-Af Amer) POC Glucose (mg/dL) 218 H 156 H Random Glucose Calcium Total Bilirubin AST ALT Alkaline Phosphatase Troponin I < 0.0120 Total Protein Albumin Globulin Albumin/Globulin Ratio Triglycerides Cholesterol LDL Cholesterol Direct HDL Cholesterol Lipase Vitamin B12 Thyroxine (T4) Total T3 TSH 3rd Generation Urine Color Urine Clarity Urine pH Ur Specific [place] Urine Protein Urine Glucose (UA) Urine Ketones Urine Blood Urine Nitrate Urine Bilirubin Urine Urobilinogen Ur Leukocyte Esterase Urine RBC (Auto) Urine Microscopic WBC Urine Bacteria 12/02/17 12/02/17 05:45 05:45 WBC 7.8 RBC 4.03 Hgb 11.5 L Hct 33.5 L MCV 83.2 MCH 28.6 MCHC 34.3 RDW 13.4 Plt Count 175 MPV Neut % (Auto) Lymph % (Auto) Sharkey % (Auto) Eos % (Auto) Baso % (Auto) Neut # (Auto) Lymph # (Auto) Sharkey # (Auto) Eos # (Auto) Baso # (Auto) Sodium 141 Potassium 3.4 L Chloride 107 Carbon Dioxide 28 Anion Gap 9 L BUN 12 Creatinine 0.6 L Est GFR ( Amer) > 60 Est GFR (Non-Af Amer) > 60 POC Glucose (mg/dL) Random Glucose 167 H Calcium 8.8 Total Bilirubin 0.6 AST 21 ALT 29 Alkaline Phosphatase 46 Troponin I Total Protein 6.3 Albumin 3.5 Globulin 2.8 Albumin/Globulin Ratio 1.2 Triglycerides 167 H Cholesterol 128 LDL Cholesterol Direct 71 HDL Cholesterol 27 L Lipase Vitamin B12 357 Thyroxine (T4) 6.88 Total T3 0.644 L TSH 3rd Generation 0.59 Urine Color Urine Clarity Urine pH Ur Specific [place] Urine Protein Urine Glucose (UA) Urine Ketones Urine Blood Urine Nitrate Urine Bilirubin Urine Urobilinogen Ur Leukocyte Esterase Urine RBC (Auto) Urine Microscopic WBC Urine Bacteria Assessment & Plan - Assessment and Plan (Free Text) Assessment: 67 y/o female with a PMHx of Arthritis, Diabetes, Cholelithiasis, HTN and Kidney Stones admitted due to vomiting and abdominal pain. Plan: - urology consulted, f/u recommeds - GI, consulted, f/u recommendations - continue PO Bactrim - IV fluids - pain management - f/u labs in am. Case discussed with Macy Moody. <Billy Moody - Last Filed: 12/03/17 03:17> Results - Vital Signs Recent Vital Signs: Last Vital Signs Temp 98.5 F 12/02/17 08:26 Pulse 75 12/02/17 09:36 Resp 20 12/02/17 08:26 BP 161/79 H 12/02/17 09:36 Pulse Ox 96 12/02/17 14:57 - Labs Result Diagrams: 12/02/17 05:45 12/02/17 05:45 Labs: Laboratory Results - last 24 hr 12/02/17 12/02/17 12/02/17 05:19 05:45 05:45 WBC 7.8 RBC 4.03 Hgb 11.5 L Hct 33.5 L MCV 83.2 MCH 28.6 MCHC 34.3 RDW 13.4 Plt Count 175 Sodium 141 Potassium 3.4 L Chloride 107 Carbon Dioxide 28 Anion Gap 9 L BUN 12 Creatinine 0.6 L Est GFR ( Amer) > 60 Est GFR (Non-Af Amer) > 60 POC Glucose (mg/dL) 156 H Random Glucose 167 H Calcium 8.8 Total Bilirubin 0.6 AST 21 ALT 29 Alkaline Phosphatase 46 Total Protein 6.3 Albumin 3.5 Globulin 2.8 Albumin/Globulin Ratio 1.2 Triglycerides 167 H Cholesterol 128 LDL Cholesterol Direct 71 HDL Cholesterol 27 L Vitamin B12 357 Thyroxine (T4) 6.88 Total T3 0.644 L TSH 3rd Generation 0.59 12/02/17 10:43 WBC RBC Hgb Hct MCV MCH MCHC RDW Plt Count Sodium Potassium Chloride Carbon Dioxide Anion Gap BUN Creatinine Est GFR ( Amer) Est GFR (Non-Af Amer) POC Glucose (mg/dL) 201 H Random Glucose Calcium Total Bilirubin AST ALT Alkaline Phosphatase Total Protein Albumin Globulin Albumin/Globulin Ratio Triglycerides Cholesterol LDL Cholesterol Direct HDL Cholesterol Vitamin B12 Thyroxine (T4) Total T3 TSH 3rd Generation Assessment & Plan - Assessment and Plan (Free Text) Assessment: Patient was personally seen and examined by me in rounds with residents. Available labs and diagnostic data reviewed. Case, Patient's condition and management plan discussed with residents in rounds. Agree with resident's progress note. Plan: As ordered.
[2017-12-02 08:27] VITALS: BP 161/79; PULSE 75; TEMP 98.5
[2017-12-02] MEDS ORDERED: Digoxin 125 mcg (0.125 mg) Tab PO SCH (09:00)
[2017-12-02] MEDS ORDERED: Tmp-Smz 800 mg-160 mg DS Tab PO SCH (09:00)
[2017-12-02] MEDS ORDERED: Metoprolol Succinate 50 mg XL Tab PO SCH (09:00)
--- NOTE | 2017-12-02 09:27 | CARD ---
APPROVED REPORT Date of service: 12/01/2017 EKG Measurement Heart [id number] <Conclusion> Normal sinus rhythm Low voltage QRS Borderline ECG
[2017-12-02 09:37] VITALS: PULSE 75
[2017-12-02] MEDS ORDERED: Potassium Chloride 20 mEq ER Tab PO ONE (10:11)
--- NOTE | 2017-12-02 10:59 | CP.PCM.CON ---
History of Present Illness - History of Present Illness History of Present Illness: GI Fellow PGY5 Consult Note This is a 67 y/o female with a PMHx of Arthritis, Diabetes, Cholelithiasis, HTN and Kidney Stones presents to the ED for worsening left sided abdominal and back pain, onset two days ago. Patient states pain is associated with nausea and vomiting. Patient additionally reports constipation for two days when her normal is diarrhea. Patient states symptoms does not feel as sharp or crampy as those associated with previous renal stones. She had some dysuria that resolved with pyridium. she was able to eat breakfast this morning with no N/V. Pt had a EGD and Colonoscopy 08/2017 with . EGD was normal with mild gastritis neg H.pylori. Colonoscopy was normal path neg for microscopic colitis. Renal US and CT shows 3mm renal calculi on left side. ROS: A 12pt ROS was negative except as above Pmhx: As stated in HPI Pshx: denies FHX: Denies colon cancer SHx: Denies etoh, drugs, tobacco Past Patient History - Past Medical History & Family History Past Medical History?: Yes - Past Social History Smoking Status: Never Smoked - CARDIAC Hx Hypertension: Yes - PULMONARY Hx Respiratory Disorders: No - NEUROLOGICAL Hx Neurological Disorder: No - HEENT Hx HEENT Problems: No - RENAL Hx Kidney Stones: Yes - ENDOCRINE/METABOLIC Hx Endocrine Disorders: Yes Hx Diabetes Mellitus Type 2: Yes - HEMATOLOGICAL/ONCOLOGICAL Hx Blood Disorders: No - INTEGUMENTARY Hx Dermatological Problems: No - MUSCULOSKELETAL/RHEUMATOLOGICAL Hx Arthritis: Yes Hx Falls: No - GASTROINTESTINAL Hx Gall Bladder Disease: Yes - GENITOURINARY/GYNECOLOGICAL Hx Genitourinary Disorders: No - PSYCHIATRIC Hx Psychophysiologic Disorder: No Hx Substance Use: No - SURGICAL HISTORY Hx Cholecystectomy: Yes Hx Coronary Stent: Yes (x10 years ago) - ANESTHESIA Hx Anesthesia: Yes Hx Anesthesia Reactions: No Hx Malignant Hyperthermia: No Meds Allergies/Adverse Reactions: Allergies Allergy/AdvReac Type Severity Reaction Status Date / Time ciprofloxacin [From Cipro] Allergy ITCHING Verified 12/01/17 07:23 - Medications Medications: Current Medications Clopidogrel Bisulfate (Plavix) 75 mg PO DAILY [facility] Last Admin: 12/02/17 09:34 Dose: 75 mg Digoxin (Digoxin) 0.125 mg PO DAILY [facility] Last Admin: 12/02/17 09:35 Dose: 0.125 mg Ergocalciferol (Drisdol 50,000 Intl Units Cap) 1 cap PO SUN [facility] Ferrous Sulfate (Feosol) 325 mg PO DAILY [facility] Last Admin: 12/02/17 09:35 Dose: 325 mg Home Med (Liraglutide [Victoza 2-Sai]) 1.8 mg SC DAILY [facility] Dextrose/Sodium Chloride (Dextrose 5%/0.9% Ns 1000 Ml) 1,000 mls @ 100 mls/hr IV .Q10H [facility] Stop: 12/04/17 18:34 Insulin Detemir (Levemir) 24 units SC [facility] Last Admin: 12/01/17 22:11 Dose: 24 units Insulin Human Regular (Humulin R) 0 units SC [facility]; Protocol Last Admin: 12/02/17 08:00 Dose: 2 units Ketorolac Tromethamine (Toradol) 15 mg IVP Q6 PRN PRN Reason: Pain, severe (8-10) Last Admin: 12/02/17 09:33 Dose: 15 mg Losartan Potassium (Cozaar) 50 mg PO DAILY [facility] Last Admin: 12/02/17 09:36 Dose: 50 mg Metformin HCl (Glucophage) 1,000 mg PO DAILYWM [facility] Last Admin: 12/02/17 08:35 Dose: 1,000 mg Metoprolol Succinate (Toprol Xl) 50 mg PO DAILY [facility] Last Admin: 12/02/17 09:36 Dose: 50 mg Naproxen (Naproxen) 500 mg PO BIDWM [facility] Last Admin: 12/02/17 08:15 Dose: 500 mg [id number] Ethyl Esters (Lovaza) 1 gm PO Q12 [facility] Last Admin: 12/02/17 09:33 Dose: 1 gm Ondansetron HCl (Zofran Inj) 4 mg IVP Q6 PRN PRN Reason: Nausea/Vomiting Last Admin: 12/01/17 20:33 Dose: 4 mg Tamsulosin HCl (Flomax) 0.4 mg PO DAILY [facility] Last Admin: 12/02/17 09:35 Dose: 0.4 mg Trimethoprim/Sulfamethoxazole (Bactrim Ds Tab) 1 tab PO BID [facility]; Protocol Last Admin: 12/02/17 09:35 Dose: 1 tab Physical Exam - Constitutional Appears: Non-toxic, No Acute Distress - Head Exam Head Exam: ATRAUMATIC, NORMAL INSPECTION - Eye Exam Eye Exam: EOMI, Normal appearance, PERRL Pupil Exam: PERRL - ENT Exam ENT Exam: Mucous Membranes Moist - Neck Exam Neck exam: Positive for: Full Rom - Respiratory Exam Respiratory Exam: Decreased Breath Sounds, NORMAL BREATHING PATTERN - Cardiovascular Exam Cardiovascular Exam: RRR, +S1, +S2 - GI/Abdominal Exam GI & Abdominal Exam: Normal Bowel Sounds, Soft, Tenderness. absent: Distended, Firm, Guarding - Rectal Exam Rectal Exam: Deferred - Extremities Exam Extremities exam: Positive for: full ROM, normal inspection - Back Exam Back exam: NORMAL INSPECTION - Neurological Exam Neurological exam: Alert, Oriented x3 - Psychiatric Exam Psychiatric exam: Normal Affect, Normal Mood - Skin Skin Exam: Dry, Intact, Normal Color, Warm Results - Vital Signs Recent Vital Signs: Last Vital Signs Temp 98.5 F 12/02/17 08:26 Pulse 75 12/02/17 09:36 Resp 20 12/02/17 08:26 BP 161/79 H 12/02/17 09:36 Pulse Ox 97 12/02/17 08:26 - Labs Result Diagrams: 12/02/17 05:45 12/02/17 05:45 Labs: Laboratory Results - last 24 hr 12/01/17 12/01/17 12/01/17 10:00 14:30 22:05 WBC RBC Hgb Hct MCV MCH MCHC RDW Plt Count Sodium Potassium Chloride Carbon Dioxide Anion Gap BUN Creatinine Est GFR ( Amer) Est GFR (Non-Af Amer) POC Glucose (mg/dL) 218 H Random Glucose Calcium Total Bilirubin AST ALT Alkaline Phosphatase Troponin I < 0.0120 Total Protein Albumin Globulin Albumin/Globulin Ratio Triglycerides Cholesterol LDL Cholesterol Direct HDL Cholesterol Vitamin B12 Thyroxine (T4) Total T3 TSH 3rd Generation Urine Color Yellow Urine Clarity Clear Urine pH 6.0 Ur Specific [place] 1.014 Urine Protein Negative Urine Glucose (UA) >=500 Urine Ketones Negative Urine Blood Negative Urine Nitrate Negative Urine Bilirubin Negative Urine Urobilinogen 0.2-1.0 Ur Leukocyte Esterase Neg Urine RBC (Auto) 2 Urine Microscopic WBC 5 Urine Bacteria Rare 12/02/17 12/02/17 12/02/17 05:19 05:45 05:45 WBC 7.8 RBC 4.03 Hgb 11.5 L Hct 33.5 L MCV 83.2 MCH 28.6 MCHC 34.3 RDW 13.4 Plt Count 175 Sodium 141 Potassium 3.4 L Chloride 107 Carbon Dioxide 28 Anion Gap 9 L BUN 12 Creatinine 0.6 L Est GFR ( Amer) > 60 Est GFR (Non-Af Amer) > 60 POC Glucose (mg/dL) 156 H Random Glucose 167 H Calcium 8.8 Total Bilirubin 0.6 AST 21 ALT 29 Alkaline Phosphatase 46 Troponin I Total Protein 6.3 Albumin 3.5 Globulin 2.8 Albumin/Globulin Ratio 1.2 Triglycerides 167 H Cholesterol 128 LDL Cholesterol Direct 71 HDL Cholesterol 27 L Vitamin B12 357 Thyroxine (T4) 6.88 Total T3 0.644 L TSH 3rd Generation 0.59 Urine Color Urine Clarity Urine pH Ur Specific [place] Urine Protein Urine Glucose (UA) Urine Ketones Urine Blood Urine Nitrate Urine Bilirubin Urine Urobilinogen Ur Leukocyte Esterase Urine RBC (Auto) Urine Microscopic WBC Urine Bacteria Assessment & Plan - Assessment and Plan (Free Text) Assessment: This is a 67 y/o female with a PMHx of Arthritis, Diabetes, Cholelithiasis, HTN and Kidney Stones presents to the ED for worsening left sided abdominal and back pain, onset two days ago. 1. Nephrolithiasis 2. GERD 3. Constipation Plan: -Continue supportive care with pain control and anti-emetics -Renal US and CT imaging positive for 3m renal calculi on left side -Pepcid daily for GERD -EGD and Colonoscopy reviewed wnl -Miralax daily for constipation -Further care per primary team
--- NOTE | 2017-12-02 12:39 | CP.PCM.PCO ---
Assessment/Plan - Assessment/Plan Assessment (Free Text): Pt stable, tolerating diet and ambulating without distress. No left flank pain noted today. Spoke to Dr. Adhikari, the stone on R kidney is non obstructing, very small and will most likely pass, there is no intervention at this time. Patient not having any pain on R flank. Patient seen and cleared for d/c by GI, Dr. Ybarra with outpatient f/u. Patient seen and cleared for d/c by Dr. Moody. Pt and at bedside aware of plan.
[2017-12-02 14:58] VITALS: O2SAT 96
[2017-12-03] MEDS ORDERED: POLYETHYLENE GLYCOL 3350 17 GM/Dose PACKET PO SCH (09:00)
[2017-12-07] MEDS ORDERED: Ergocalciferol 50,000 Intl Units Cap PO SCH (09:00)
== END 2017-12-02 14:30 | disposition home or self-care (01) ==
LOC: H.ER 06:59 → H.ERHOLD 16:43 → H.MEDSURG1 17:33
PROVIDERS: ADMIT Internal Medicine; ATTEND Internal Medicine
DX: N20.0 Calculus of kidney (principal); E11.9 Type 2 diabetes mellitus without complications; I10 Essential (primary) hypertension; Z79.4 Long term (current) use of insulin; M19.90 Unspecified osteoarthritis, unspecified site; R30.0 Dysuria; K21.9 Gastro-esophageal reflux disease without esophagitis; K59.00 Constipation, unspecified; K80.20 Calculus of gallbladder without cholecystitis without obstruction
CPT/HCPCS: 36415; 74176; 76770; 80053; 80061; 81003; 82607; 82948; 83690; 84436; 84443; 84480; 84484; 85025; 85027; 87086; 93005; 96374; 99284; G0378; J1885; J2405; J7030

== ENCOUNTER 2017-12-02 19:32 | Emergency (ER) | payer MEDICARE, OTHER ==
[2017-12-02 19:32] VITALS: PULSE 75; BMI 27.1
[2017-12-02] MEDS ORDERED: Sodium Chloride 0.9% 1,000 ML IV STA (20:37)
--- NOTE | 2017-12-02 20:47 | ED PDOC ---
HPI: Abdomen Time Seen by Provider: 12/02/17 20:30 Chief Complaint (Nursing): Back Pain Chief Complaint (Provider): abdominal pain History Per: Patient History/Exam Limitations: no limitations Onset/Duration Of Symptoms: Hrs Current Symptoms Are (Timing): Still Present Location Of Pain/Discomfort: Epigastric, LUQ Additional Complaint(s): 67 y/o female presents for evaluation of ongoing left upper abdominal pain x 3 hours. Patient states she was admitted yesterday for intractable pain and vomiting to same area; was found to have nonobstructing kidney stone on right side, was cleared for discharge today because she was feeling better. Patient states every time she eats something she throws up. Denies fever, chest pain, shortness of breath, palpitations, changes in bowel movements, dysuria, hematuria. Past Medical History Reviewed: Historical Data, Nursing Documentation, Vital Signs Vital Signs: Last Vital Signs Temp 98.0 F 12/02/17 19:42 Pulse 69 12/02/17 19:42 Resp 16 12/02/17 19:42 BP 176/73 H 12/02/17 19:42 Pulse Ox 100 12/02/17 19:42 - Medical History PMH: Arthritis, Diabetes (on Insulin, accucheck this morning 137), Gall Bladder Disease, HTN, Kidney Stones Denies: Asthma, Atrial Fibrillation, CHF, COPD, Hypercholesterolemia, Chronic Kidney Disease, Seizures - Surgical History Surgical History: Cholecystectomy, Coronary Stent (x10 years ago), Endoscopy Denies: CABG, Pacemaker - Family History Family History: States: CAD - Home Medications Home Medications: Ambulatory Orders Medication Instructions Recorded Clopidogrel Bisulfate [Plavix] 75 mg PO DAILY 05/04/15 Digoxin 125 mcg PO DAILY 05/04/15 Metoprolol Succinate XL [Toprol XL] 50 mg PO DAILY 05/04/15 Irbesartan [Avapro] 150 mg PO DAILY 06/30/15 Naproxen 500 mg PO BID #28 ect 11/29/17 Sulfamethoxazole/Trimethoprim 1 tab PO BID #28 tab 11/29/17 [Bactrim DS Tab] Tamsulosin [Flomax] 0.4 mg PO DAILY #30 cap 11/29/17 Ergocalciferol (Vitamin D2) 50,000 unit PO SUN 12/01/17 [Vitamin D2] Ferrous Sulfate [Feosol] 325 mg PO DAILY 12/01/17 Icosapent Ethyl [Vascepa] 1 gm PO Q12 12/01/17 Insulin Detemir [Levemir] 24 unit SC HS 12/01/17 Liraglutide [Victoza 2-Sai] 1.8 mg SC DAILY 12/01/17 MetFORMIN [glucoPHAGE] 1,000 mg PO DAILY 12/01/17 Ondansetron ODT [Zofran ODT] 4 mg PO Q8 PRN #10 odt 12/03/17 - Allergies Allergies/Adverse Reactions: Allergies Allergy/AdvReac Type Severity Reaction Status Date / Time ciprofloxacin [From Cipro] Allergy ITCHING Verified 12/02/17 19:42 Review of Systems ROS Statement: Except As Marked, All Systems Reviewed And Found Negative Gastrointestinal: Positive for: Nausea, Vomiting, Abdominal Pain Physical Exam - Reviewed Nursing Documentation Reviewed: Yes Vital Signs Reviewed: Yes - Physical Exam Appears: Positive for: Well, Non-toxic, Uncomfortable Head Exam: Positive for: ATRAUMATIC, NORMAL INSPECTION, NORMOCEPHALIC Skin: Positive for: Normal Color Eye Exam: Positive for: Normal appearance ENT: Positive for: Normal ENT Inspection Cardiovascular/Chest: Positive for: Regular Rate, Rhythm Respiratory: Positive for: Normal Breath Sounds Gastrointestinal/Abdominal: Positive for: Bowel Sounds, Soft, Tenderness (epigastric, LUQ, left flank) Back: Positive for: Normal Inspection. Negative for: L CVA Tenderness, R CVA Tenderness Extremity: Positive for: Normal ROM Neurologic/Psych: Positive for: Alert, Oriented (x3) - Laboratory Results Result Diagrams: 12/02/17 20:51 12/02/17 20:51 - ECG O2 Sat by Pulse Oximetry: 100 - Progress ED Course And Treament: labs, urine, IV toradol, IV protonix On re-eval, patient still moaning in pain with nausea; IV reglan ordered On re-eval, patient states she is still in pain, IV morphine ordered Case discussed with ED attending Dr. Sarah; will order CT abd/pelvis with IV contrast since patient still with pain USArad impression: possible cystitis On re-eval, patient states pain improved. Tolerated water Rx Zofran provided Patient was advised to continue Naproxen, and BActrim DS that she was prescribed 11/29 (states she only took 2 days of it and was told there was no infection when admitted) Follow up PMD, GI, uro Return precautions given Disposition - Clinical Impression Clinical Impression: UTI (urinary tract infection), Abdominal pain Counseled Patient/Family Regarding: Studies Performed, Diagnosis, Need For Followup, Rx Given - Disposition Disposition: Routine/Home Disposition Time: 01:45 Condition: IMPROVED Additional Instructions: Continue antibiotic twice daily as previously prescribed Prescriptions: Ondansetron ODT [Zofran ODT] 4 mg PO Q8 PRN #10 odt PRN Reason: Nausea/Vomiting Instructions: Urinary Tract Infections in Adults, Acute Abdomen (Belly Pain), Adult (DC)
[2017-12-02 20:57] LABS: BASO % 0.5 % (0.0-2.0); EOS % 0.4 % (0.0-4.0); HEMOGLOBIN 12.2 g/dL (12.0-16.0); LYMPH % 14.1 % (20.0-40.0); MEAN CELL VOLUME 83.5 fl (81.0-99.0); MEAN CORPUSCULAR HEMOGLOBIN 28.2 pg (27.0-31.0); MEAN CORPUSCULAR HGB CONC 33.8 g/dL (33.0-37.0); MEAN PLATELET VOLUME 6.7 fl (7.2-11.7); MONO # 0.2 K/uL (0.0-0.8); MONO % 3.3 % (0.0-10.0); NEUT % 81.7 % (50.0-75.0); RBC 4.3 Mil/uL (3.80-5.20); RED CELL DISTRIBUTION WIDTH 13.4 % (11.5-14.5); WHITE BLOOD COUNT 7.4 K/uL (4.8-10.8)
[2017-12-02 21:13] LABS: ALB/GLOB RATIO 1.3 (1.0-2.1); ALBUMIN 4.2 g/dL (3.5-5.0); ALT/SGPT 40 U/L (9-52); AST/SGOT 32 U/L (14-36); BLOOD UREA NITROGEN 18 mg/dl (7-17); CALCIUM 9.2 mg/dL (8.4-10.2); GFR NON-AFRICAN AMERICAN > 60; LIPASE 59 U/L (23-300)
[2017-12-02 23:09] LABS: SQUAMOUS EPITHIAL < 1 /hpf (0-5); URINE BACTERIA MOD (<OCC); URINE BILIRUBIN NEGATIVE (NEGATIVE); URINE BLOOD NEGATIVE (NEGATIVE); URINE CLARITY SLIGHTY-CLOUDY (Clear); URINE COLOR YELLOW (YELLOW); URINE GLUCOSE (UA) 50 mg/dL (Normal); URINE LEUKOCYTE ESTERASE SMALL Leu/uL (Negative); URINE PROTEIN 30 mg/dL (NEGATIVE); URINE UROBILINOGEN 0.2-1.0 mg/dL (0.2-1.0)
[2017-12-03] MEDS ORDERED: Iohexol 300 100 ML IJ ONE (00:18)
[2017-12-03 01:48] VITALS: BP 153/78; PULSE 76; RESP 20; TEMP 98.7
[2017-12-03 05:02] VITALS: O2SAT 100
--- NOTE | 2017-12-03 06:38 | CARD ---
APPROVED REPORT Date of service: 12/02/2017 EKG Measurement Heart [id number] <Conclusion> Normal sinus rhythm with sinus arrhythmia Low voltage QRS Cannot rule out Anterior infarct, age undetermined Abnormal ECG
--- NOTE | 2017-12-03 14:05 | CT ---
Date of service: 12/03/2017 PROCEDURE: CT Abdomen and Pelvis with contrast HISTORY: Left abdomen/flank pain, vomiting COMPARISON: 12/01/2017. TECHNIQUE: CT scan of the abdomen and pelvis was performed after administration of intravenous contrast. Oral contrast was not administered. Coronal and sagittal reformatted images were obtained. Contrast dose: 95 mL Omnipaque 3 and Radiation dose: Total exam DLP = 457.31 mGy-cm. This CT exam was performed using one or more of the following dose reduction techniques: Automated exposure control, adjustment of the mA and/or kV according to patient size, and/or use of iterative reconstruction technique. FINDINGS: LOWER THORAX: There is a tiny granuloma in the right middle lobe, otherwise visualized lungs are clear. There is linear atelectasis/scarring in the left lung base. LIVER: Mild hepatomegaly and fatty liver. No gross lesion or ductal dilatation. GALLBLADDER AND BILE DUCTS: Surgically absent. PANCREAS: Normal in size with homogeneous enhancement. No gross lesion or ductal dilatation. SPLEEN: Borderline splenomegaly. Homogeneous enhancement. ADRENALS: The right adrenal gland is normal in size. There is a stable adenoma in the medial limb of the left adrenal gland. KIDNEYS AND URETERS: Normal in size with homogeneous enhancement. No hydronephrosis. No solid mass. Punctate nonobstructing stone in the right interpolar region VASCULATURE: No aortic aneurysm. BOWEL: There are fluid-filled mildly dilated small bowel loops. There is fluid in the ascending colon. There is moderate amount of stool in the transverse and descending colon. No bowel obstruction. APPENDIX: Normal appendix. PERITONEUM: No free fluid. No free air. LYMPH NODES: No enlarged lymph nodes. BLADDER: Grossly normal in appearance. REPRODUCTIVE: The uterus is normal in size. BONES: No acute fracture. Multilevel degenerative disc disease in the lower lumbar spine. OTHER FINDINGS: None. IMPRESSION: Mildly dilated fluid-filled small bowel loops and fluid in the ascending colon is nonspecific and could represent nonspecific enteritis and colitis. No bowel obstruction. Mild hepatosplenomegaly and fatty liver. A preliminary report was provided by [facility] [employer] [facility].
== END 2017-12-03 01:55 | disposition home or self-care (01) ==
LOC: H.ER 19:32
DX: N39.0 Urinary tract infection, site not specified (principal); E11.9 Type 2 diabetes mellitus without complications; I10 Essential (primary) hypertension; Z79.4 Long term (current) use of insulin; Z95.5 Presence of coronary angioplasty implant and graft
CPT/HCPCS: 74177; 80053; 81003; 82948; 83690; 85025; 87086; 93005; 96361; 96374; 96375; 99283; C9113; J1885; J2270; J2405; J2765; J7030; Q9967